=== PATIENT | female | born 1970 | race Two or more races ===

== ENCOUNTER 2019-03-06 13:05 | Emergency (ER) | payer MEDICAID, OTHER ==
[~2019-03-06] VITALS: Ht 152.4 cm; Wt 65.5 kg
[~2019-03-06 13:05] MED LIST: PREN1TAB49
[2019-03-06 13:28] VITALS: BP 160/84; PULSE 78; RESP 18; Ht 152.4 cm; Wt 65.5 kg
[2019-03-06] MEDS ORDERED: CEPH500C PO (13:57)
[2019-03-06] MEDS ORDERED: IBUP-1542 PO (13:57)
--- NOTE | 2019-03-06 13:59 | ERD ---
ER Documentation Chief Complaint Chief Complaint RT THUMB PAIN /SWELLING AFTER CUTTING HER NAIL HPI 48-year-old female complaining of right thumb pain and swelling x4 days after she trimmed her fingernail too far. She reports occasional bleeding and discoloration of her fingernail. She reports slight pain when he presses on top of that now. She reports the pain is 4 out of 10 and does not radiate anywhere. She reports good pulses, good sensation, and good motor function in all her fingers on her left hand. She denies any previous injury to the finger or nail. She has not taken any medication to help alleviate her pain. She reports that nothing makes the pain better or worse. She has concerns for infection and states that she has not had a tetanus shot in a while and is wanting a new one. Past medical history: Diabetes ROS All systems reviewed and are negative except as per history of present illness. Medications Home Meds Active Scripts Ibuprofen* (Motrin*) 600 Mg Tab, 600 MG PO Q6H PRN for PAIN AND OR ELEVATED TEMP, #30 TAB Prov:FRANK NEELY PA-C 03/06/19 Cephalexin* (Cephalexin*) 500 Mg Capsule, 500 MG PO BID, #14 CAP Prov:FRANK NEELY PA-C 03/06/19 Reported Medications Vits W-Ca,Fe,Fa(<1MG) () 1 Tab Tablet 04/09/10 Allergies Allergies: Coded Allergies: No Known Allergy (Verified Allergy, Mild, 10/23/09) PMhx/Soc Medical and Surgical Hx: pt denies Medical Hx, pt denies Surgical Hx History of Surgery: No Hx Neurological Disorder: No Hx Respiratory Disorders: No Hx Cardiac Disorders: No Hx Miscellaneous Medical Probl: No Hx Alcohol Use: No Hx Substance Use: No Hx Tobacco Use: No Smoking Status: Never smoker FmHx Family History: No diabetes Physical Exam Vitals Vital Signs Date Temp Pulse Resp B/P (MAP) Pulse Ox O2 O2 Flow FiO2 Time Delivery Rate 03/06/19 98.3 78 18 160/84 97 13:28 (109) Physical Exam Const: No acute distress Head: Atraumatic Eyes: Normal Conjunctiva ENT: Normal External Ears, Nose and Mouth. Neck: Full range of motion. No meningismus. Resp: Clear to auscultation bilaterally Cardio: Regular rate and rhythm, no murmurs Abd: Soft, non tender, non distended. Normal bowel sounds Skin: No petechiae or rashes Back: No midline or flank tenderness Ext: Right thumb: Slightly dark yellow discoloration of the nailbed. Good 2+ pulses, good sensation, 5 out of 5 motor strength. Slight bleeding produced w hen squeezing hard on the nailbed. Not warm, non-erythematous. Neur: Awake and alert Psych: Normal Mood and Affect Results 24 hrs Current Medications Medications Dose Sig/Miranda Start Time Status Last (Trade) Ordered Route PRN Stop Time Admin Dose Reason Admin Diphtheria/ 0.5 ml ONCE ONCE 03/06/19 DC 03/06/19 Tetanus/Acell IM* 14:00 14:06 Pertussis 03/06/19 14:01 (Adacel) Procedures/MDM ED COURSE: The patient was stable throughout ED course. I kept the patient informed of laboratory and diagnostic imaging results throughout the ED course. MEDICATIONS GIVEN: [None.] MEDICAL DECISION MAKING: Patient is a 48-year-old female who was trimming her fingernails 4 days ago and cut to far down. She reports 4 out of 10 pain. She has not taken any medication. She has concerns for infection and states that she has not had a recent tetanus shot. Patient was given her tetanus shot without any adverse reactions. No signs of ischemia, neurovascular compromise, compartment syndrome, or septic joint, avascular necrosis, or osteomyelitis. I reassured the patient that it does not look infected. I recommend that she takes Keflex antibiotic and soaks her finger in warm water for 15 minutes for 3-4 times a day. Vital signs were reviewed. Patient is afebrile. Patient was not hypoxic. Patient was hemodynamically stable. PRESCRIPTION: Keflex, ibuprofen DISCHARGE: At this time, patient is stable for discharge and outpatient management. I have instructed the patient to follow-up with his/her primary care physician in 1-2 days. I have discussed with the patient the possibility of needing to see a specialist for further workup and imaging studies if symptoms persist. I have instructed the patient to promptly return to the ER for any new or worsening symptoms including increased pain, fever, nausea, vomiting, weakness or LOC. The patient and/or family expressed understanding of and agreement with this plan. All questions were answered. Home care instructions were provided. Disclaimer: Inadvertent spelling and grammatical errors are likely due to EHR/dictation software use and do not reflect on the overall quality of patient care. Also, please note that the electronic time recorded on this note does not necessarily reflect the actual time of the patient encounter. Departure Diagnosis: Primary Impression: Nail problem Condition: Fair Patient Instructions: Nail Avulsion, Partial Referrals: [facility] YOU HAVE RECEIVED A MEDICAL SCREENING EXAM AND THE RESULTS INDICATE THAT YOU DO NOT HAVE A CONDITION THAT REQUIRES URGENT TREATMENT IN THE EMERGENCY DEPARTMENT. FURTHER EVALUATION AND TREATMENT OF YOUR CONDITION CAN WAIT UNTIL YOU ARE SEEN IN YOUR DOCTORS OFFICE WITHIN THE NEXT 1-2 DAYS. IT IS YOUR RESPONSIBILITY TO MAKE AN APPOINTMENT FOR FOLOW-UP CARE. IF YOU HAVE A PRIMARY DOCTOR --you should call your primary doctor and schedule an appointment IF YOU DO NOT HAVE A PRIMARY DOCTOR YOU CAN CALL OUR PHYSICIAN REFERRAL HOTLINE AT IF YOU CAN NOT AFFORD TO SEE A PHYSICIAN YOU CAN CHOSE FROM THE FOLLOWING [facility] [address] [facility] [address] [facility] [facility] [address] [facility] [address] [facility] [address] [facility]. [address] [facility] YOU HAVE RECEIVED A MEDICAL SCREENING EXAM AND THE RESULTS INDICATE THAT YOU DO NOT HAVE A CONDITION THAT REQUIRES URGENT TREATMENT IN THE EMERGENCY DEPARTMENT. FURTHER EVALUATION AND TREATMENT OF YOUR CONDITION CAN WAIT UNTIL YOU ARE SEEN IN YOUR DOCTORS OFFICE WITHIN THE NEXT 1-2 DAYS. IT IS YOUR RESPONSIBILITY TO MAKE AN APPOINTMENT FOR FOLOW-UP CARE. IF YOU HAVE A PRIMARY DOCTOR --you should call your primary doctor and schedule and appointment IF YOU DO NOT HAVE A PRIMARY DOCTOR YOU CAN CALL OUR PHYSICIAN REFERRAL HOTLINE AT . IF YOU CAN NOT AFFORD TO SEE A PHYSICIAN YOU CAN CHOSE FROM THE FOLLOWING [facility] INSTITUTIONS: [facility] [address] [place] [address] [facility] [address] [place] [address] [facility] [address] [place] [address] Additional Instructions: Soak your finger in warm water for 15 minutes 3-4 times a day. Take the antibiotics and follow-up with your primary care provider for further management and care. Llame al doctor MAANA y hina magaly VALERIA PARA DENTRO DE 1-2 LOVE.Dgale a la secretaria que nosotros le instruimos hacer esta valeria.Avise o llame si paula condicin se empeora antes de la valeria. Regresa aqui si peor o no mejor. FRANK NEELY PA-C Mar 06, 2019 13:59
[2019-03-06] MEDS ORDERED: DIPHTH/TET/ACEL PERTUSS (ADULT) 0.5 ML VIAL IM* ONE (14:00)
== END 2019-03-06 14:07 | disposition home or self-care (01) ==
LOC: FTE 13:05
DX: L60.9 Nail disorder, unspecified (principal); Z23 Encounter for immunization
CPT/HCPCS: 90471; 90715; Z7502